=== PATIENT | female | born 1980 | race Asian ===

== ENCOUNTER → 2018-12-21 | Outpatient (CLI) | payer OTHER ==
[2015-10-01 15:56] VITALS: BP 110/77
[~2018-12-21] MED LIST: METR-34 PO
--- NOTE | 2018-12-21 10:36 | KCIC ---
LUMBAR SPINE 2-3V History: Back pain, left hip pain Comparison: None. Findings: 3 views of the lumbar spine are submitted. Lumbar vertebral body stature and AP alignment are adequate. Intervertebral disc spaces are maintained. No acute osseous abnormality is identified by radiographs. Impression: 1. No significant abnormality is identified by radiographs. Electronically signed by: Eduardo Montesinos MD (12/21/2018 10:33 AM) [id number]
--- NOTE | 2018-12-21 10:36 | KCIC ---
HIP LEFT 2 VIEW History: Back pain, left hip pain Comparison: None. Findings: 2 views left hip are submitted. No acute fracture or dislocation is identified. Left hip space is maintained. Left femoral head morphology is preserved. Impression: 1. No significant abnormality is identified by radiographs. Electronically signed by: Eduardo Montesinos MD (12/21/2018 10:34 AM) [id number]
== END | disposition home or self-care (01) ==
LOC: KCIC 09:49
PROVIDERS: ATTEND Family Medicine
DX: M54.32 Sciatica, left side (principal); M25.552 Pain in left hip
CPT/HCPCS: 72100; 73502